=== PATIENT | male | born 1985 | race Caucasian/White ===

== ENCOUNTER 2016-09-24 10:19 | Outpatient (CLI) | payer OTHER ==
[~2016-09-24 10:19] MED LIST: COUMADIN5 MG PO; FERROUS SULFAT324 M1 PO; LOVENOX80 MG/0.8 SC; METHADONE HCL10 MG PO; NICOTINE T21 MG/24 H TOP
== END 2016-09-24 23:00 ==
LOC: LAB SRH 10:19
DX: Z51.81 Encounter for therapeutic drug level monitoring (principal); Z79.01 Long term (current) use of anticoagulants; Z86.711 Personal history of pulmonary embolism; Z86.718 Personal history of other venous thrombosis and embolism
CPT/HCPCS: 90074; 94060

== ENCOUNTER 2016-10-07 13:49 | Outpatient (CLI) | payer OTHER | END 2016-10-07 23:00 | LOC: LAB SRH 13:49 | DX: Z86.711 Personal history of pulmonary embolism (principal); Z86.718 Personal history of other venous thrombosis and embolism | CPT/HCPCS: 90074; 94060 ==

== ENCOUNTER 2016-10-15 09:43 | Outpatient (CLI) | payer OTHER | END 2016-10-15 23:00 | LOC: LAB SRH 09:43 | DX: Z51.81 Encounter for therapeutic drug level monitoring (principal); Z79.01 Long term (current) use of anticoagulants; Z86.711 Personal history of pulmonary embolism; Z86.718 Personal history of other venous thrombosis and embolism | CPT/HCPCS: 90074; 94060 ==

== ENCOUNTER 2016-10-29 07:51 | Outpatient (CLI) | payer OTHER | END 2016-10-29 23:00 | LOC: LAB SRH 07:51 | DX: Z51.81 Encounter for therapeutic drug level monitoring (principal); Z79.01 Long term (current) use of anticoagulants; Z86.711 Personal history of pulmonary embolism | CPT/HCPCS: 90074; 94060 ==

== ENCOUNTER 2016-11-05 08:41 | Outpatient (CLI) | payer OTHER ==
--- NOTE | 2016-11-05 13:22 | DIAGNOSTIC IMAGING REPORT ---
PROCEDURE: US VENOUS - RIGHT EXT INDICATION: RLE DVT TECHNIQUE: Duplex sonography of the deep venous system in the right lower extremity was performed. Contralateral common femoral vein was imaged for comparison. Compression and augmentation techniques were used. COMPARISON: 01/29/2016, CT abdomen pelvis 01/29/2016 FINDINGS: The right common femoral vein in the inguinal region is partially compressible with a small amount of venous flow detected through this area. The greater saphenous vein remains patent. There is extensive scar in this region secondary to multiple prior injections which preclude good visualization of proximal extent of the thrombus. The proximal superficial femoral vein is compressible. Deep femoral vein appears patent. Distal superficial femoral, popliteal, and calf veins appear patent. A prominent 4 cm lymph node is also seen in the inguinal region. Incidental note is made of a partially compressible left common femoral vein demonstrating peripheral wall thickening decrease in the lumen diameter. There is central flow in the left common femoral vein. IMPRESSION: 1. 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 2. Incidental note made of circumferential, chronic-appearing thrombus in the left common femoral vein. 3. Discussed with Dr. Kaur at [facility], office of [facility].
== END 2016-11-05 23:00 ==
LOC: US SRH 08:41
DX: I82.511 Chronic embolism and thrombosis of right femoral vein (principal); I82.521 Chronic embolism and thrombosis of right iliac vein

== ENCOUNTER 2016-11-12 10:43 | Outpatient (CLI) | payer OTHER | END 2016-11-12 23:00 | LOC: LAB SRH 10:43 | DX: Z79.01 Long term (current) use of anticoagulants (principal); Z86.711 Personal history of pulmonary embolism; Z86.718 Personal history of other venous thrombosis and embolism | CPT/HCPCS: 90074; 94060 ==

== ENCOUNTER 2016-12-21 09:01 | Outpatient (CLI) | payer OTHER | END 2016-12-21 23:00 | LOC: LAB SRH 09:01 | DX: Z51.81 Encounter for therapeutic drug level monitoring (principal); Z79.01 Long term (current) use of anticoagulants; Z86.718 Personal history of other venous thrombosis and embolism; Z86.711 Personal history of pulmonary embolism | CPT/HCPCS: 90074; 94060 ==

== ENCOUNTER 2016-12-28 13:47 | Outpatient (CLI) | payer OTHER | END 2016-12-28 23:00 | LOC: LAB SRH 13:47 | DX: Z79.01 Long term (current) use of anticoagulants (principal) | CPT/HCPCS: 90074; 94060 ==

== ENCOUNTER 2017-01-05 13:41 | Outpatient (CLI) | payer OTHER | END 2017-01-05 23:00 | LOC: LAB SRH 13:41 | DX: Z79.01 Long term (current) use of anticoagulants (principal) | CPT/HCPCS: 90074; 94060 ==

== ENCOUNTER 2017-01-11 11:46 | Outpatient (CLI) | payer OTHER | END 2017-01-11 23:00 | LOC: LAB SRH 11:46 | DX: Z51.81 Encounter for therapeutic drug level monitoring (principal); Z79.01 Long term (current) use of anticoagulants | CPT/HCPCS: 90074; 94060 ==

== ENCOUNTER 2017-01-20 11:23 | Outpatient (CLI) | payer OTHER | END 2017-01-20 23:00 | LOC: LAB SRH 11:23 | DX: Z79.01 Long term (current) use of anticoagulants (principal) | CPT/HCPCS: 90074; 94060 ==

== ENCOUNTER 2017-01-26 10:14 | Outpatient (CLI) | payer OTHER | END 2017-01-26 23:00 | LOC: LAB SRH 10:14 | DX: Z79.01 Long term (current) use of anticoagulants (principal) | CPT/HCPCS: 90074; 94060 ==

== ENCOUNTER 2017-02-02 08:47 | Outpatient (CLI) | payer OTHER | END 2017-02-02 23:00 | LOC: LAB SRH 08:47 | DX: Z51.81 Encounter for therapeutic drug level monitoring (principal); Z79.01 Long term (current) use of anticoagulants | CPT/HCPCS: 90074; 94060 ==

== ENCOUNTER 2017-02-11 08:58 | Outpatient (CLI) | payer OTHER | END 2017-02-11 23:00 | LOC: LAB SRH 08:58 | DX: Z51.81 Encounter for therapeutic drug level monitoring (principal); Z79.01 Long term (current) use of anticoagulants | CPT/HCPCS: 90074; 94060 ==

== ENCOUNTER 2017-02-21 11:11 | Outpatient (CLI) | payer OTHER | END 2017-02-21 23:00 | disposition home or self-care (01) | LOC: LAB SRH 11:11 | DX: Z51.81 Encounter for therapeutic drug level monitoring (principal); Z79.01 Long term (current) use of anticoagulants | CPT/HCPCS: 90074; 94060 ==

== ENCOUNTER 2017-03-08 11:31 | Outpatient (CLI) | payer OTHER | END 2017-03-08 23:00 | disposition home or self-care (01) | LOC: LAB SRH 11:31 | DX: Z79.01 Long term (current) use of anticoagulants (principal) | CPT/HCPCS: 90074; 94060 ==

== ENCOUNTER 2017-03-22 12:07 | Outpatient (CLI) | payer OTHER | END 2017-03-22 23:00 | LOC: LAB SRH 12:07 | DX: Z51.81 Encounter for therapeutic drug level monitoring (principal); Z79.01 Long term (current) use of anticoagulants | CPT/HCPCS: 90074; 94060 ==